=== PATIENT | female | born 1985 | race Caucasian/White ===

== ENCOUNTER 2017-08-23 06:35 | Day surgery (SDC) | payer OTHER ==
[2017-08-23 07:17] LABS: BASOPHILS % 0.2 (0.0-1.5); EOSINOPHILS % 1.5 % (0.0-6.8); MEAN CORPUSCULAR HEMOGLOBIN 27.9 pg (28.0-34.0); MEAN CORPUSCULAR VOLUME 84.9 fl (80.0-100.0); MONOCYTES % 4.8 % (0.0-11.0)
[2017-08-23 07:32] LABS: eGFR (African) > 60; eGFR (Non-African) > 60
[2017-08-23] MEDS ORDERED: BUPIVACAINE HCL/PF 2.5 MG/ML 10ML VIAL IV ONE (08:00)
[2017-08-23] MEDS ORDERED: LIDOCAINE HCL/PF 2% 100 MG/5 ML VIAL IJ ONE (08:00)
[2017-08-23] MEDS ORDERED: ACETAMINOPHEN 1,000 MG/100 ML INJ IV ONE (08:00)
[2017-08-23] MEDS ORDERED: SEVOFLURANE 250 ML LIQUID IH ONE (08:00)
[2017-08-23] MEDS ORDERED: oxyCODONE/ACETAMINOPHEN 5/325 TABLET PO ONE ×2 (08:00→09:54)
[2017-08-23] MEDS ORDERED: PROPOFOL 200 MG/20 ML VIAL IV ONE (08:00)
[2017-08-23] MEDS ORDERED: ROCURONIUM BROMIDE 10 MG/ML 5ML VIAL ONE (08:00)
[2017-08-23] MEDS ORDERED: fentaNYL CITRATE/PF 100 MCG/ 2ML AMP ONE (08:00)
[2017-08-23] MEDS ORDERED: SALINE FLUSH 10 ML DISP.SYRIN IVF ONE (08:00)
[2017-08-23] MEDS ORDERED: MEPERIDINE HCL/PF 50 MG/ML DISP.SYRIN ONE (08:00)
[2017-08-23] MEDS ORDERED: LACTATED RINGERS 1,000 ML IV.SOLN IV ONE (08:00)
--- NOTE | 2017-08-23 09:17 | Operative Note ---
SURGEON: Octaviano Montesinos MD ANESTHESIA: General endotracheal. ESTIMATED BLOOD LOSS: 5 mL. PREOPERATIVE DIAGNOSIS: Desires sterilization. POSTOPERATIVE DIAGNOSIS: Desires sterilization. PROCEDURE PERFORMED: Laparoscopic tubal cauterization. OPERATIVE PROCEDURE AND FINDINGS: After I spoke with the patient and explained the operation to her including the failure rate of the procedure, she was taken to the operating room and placed in the supine position. After an adequate level of general endotracheal anesthesia, she was prepped and draped in a sterile fashion in the lithotomy position. A single-tooth tenaculum was placed on the anterior lip of the cervix. Sound was placed in the uterine cavity. These instruments were secured together to use for manipulation of the uterus during the laparoscopy. A small infraumbilical incision was made in the skin. The laparoscopic sleeve and trocar were inserted in the peritoneal cavity. The trocar was removed. The laparoscope was inserted. The peritoneum was insufflated with 3 liters of carbon dioxide gas. Ruby bipolar forceps were used to cauterize both the right and left fallopian tubes from the junction of the tube and uterus to the mid-portion of the tube. It was noted at this time that the uterine sound had perforated the myometrium. There was a small amount of bleeding from this perforation site that was cauterized effectively with the Ruby and the bleeding stopped. No abnormalities were seen of the uterus, fallopian tubes, or pelvic peritoneum. All instruments were removed from the peritoneal cavity and vagina. Gas was allowed to escape from the peritoneum. The incision on the patient's abdomen was closed with interrupted 4-0 Vicryl. A Band-Aid was applied to the wound. The patient was awakened and extubated in the operating room and transferred to the recovery room in an awake and stable condition. JERARDO
== END 2017-08-23 06:36 ==
LOC: OPSURG 06:35
PROVIDERS: ATTEND General Practice
DX: Z30.2 Encounter for sterilization (principal)
CPT/HCPCS: 58670; 80053; 81025; 85025; 85610; 85730; A9270; J2001; J2175; J2704; J3010; J3490; J7120; S1016